=== PATIENT | female | born 1970 | race Caucasian/White ===

== ENCOUNTER 2016-12-17 21:58 | Emergency (ER) | payer OTHER ==
[~2016-12-17] VITALS: Wt 68.2 kg
--- NOTE | 2016-12-17 23:41 | ERA ---
ER Documentation Chief Complaint Date/Time DATE: 12/17/16 TIME: 23:39 Chief Complaint CHEST PAIN SINCE YESTERDAY FEELS LIKE PRESSURE. NO N/V. MILD SOB HPI The patient is a 46-year-old female, presenting to the ER because of sternal chest pressure, 7/10, worse with palpation and movement. She denies similar symptoms previously, denies fever, chills, neck pain, chest pain with exertion or vomiting or diaphoresis. She denies abdominal pain, complain of some nausea but no vomiting, denied dysuria, polyuria, diarrhea, constipation. She does not smoke or drink, currently on her menstrual period Past medical/surgical history: None ROS All systems reviewed and are negative except as per history of present illness. Medications Home Meds Active Scripts Ibuprofen* (Motrin*) 600 Mg Tab, 600 MG PO Q6H Y for PAIN AND OR ELEVATED TEMP, #20 TAB Prov:GUANACO DUMONT MD 12/18/16 Allergies Allergies: Coded Allergies: No Known Allergy (Unverified , 12/17/16) PMhx/Soc Medical and Surgical Hx: pt denies Medical Hx, pt denies Surgical Hx History of Surgery: No Anesthesia Reaction: No Hx Neurological Disorder: No Hx Respiratory Disorders: No Hx Cardiac Disorders: No Hx Psychiatric Problems: No Hx Miscellaneous Medical Probl: No Hx Alcohol Use: Yes (quit drinking in 2012) Hx Substance Use: No Hx Tobacco Use: No Smoking Status: Never smoker Physical Exam Vitals Vital Signs Date Time Temp Pulse Resp B/P Pulse Ox O2 Delivery O2 Flow Rate FiO2 12/18/16 03:30 55 16 118/61 99 Room Air 12/18/16 01:00 55 12 122/54 97 Room Air 12/17/16 22:12 98.8 77 20 137/64 98 Physical Exam Const: No acute distress. Head: Atraumatic. Eyes: Normal Conjunctiva. ENT: Normal External Ears, Nose and Mouth. Neck: Full range of motion. No meningismus. Resp: Clear to auscultation bilaterally. Cardio: Regular rate and rhythm, no murmurs. Abd: Soft, non distended, normal bowel sounds, non tender. Skin: No petechiae or rashes. Back: No midline or flank tenderness. Ext: No cyanosis, or edema. Neur: Awake and alert. No focal deficit Psych: Normal Mood and Affect. Result Diagram: 3/3/17 2220 3/3/17 2220 Results 24 hrs Laboratory Tests Test 12/17/16 22:20 12/17/16 23:56 Alanine Aminotransferase (ALT/SGPT) 35IU/L Albumin 4.2g/dl Albumin/Globulin Ratio 1.23 Alkaline Phosphatase 98IU/L Anion Gap 17 Aspartate Amino Transf (AST/SGOT) 25IU/L Basophils # 0.010^3/ul Basophils % 0.4% Blood Urea Nitrogen 9mg/dl Calcium Level 9.0mg/dl Carbon Dioxide Level 30mmol/L Chloride Level 100mmol/L Creatinine 0.64mg/dl Direct Bilirubin 0.00mg/dl Eosinophils # 0.110^3/ul Eosinophils % 1.4% Globulin 3.40g/dl Glucose Level 106mg/dl Hematocrit 35.7% Hemoglobin 12.1g/dl Indirect Bilirubin 0.0mg/dl Lipase 161U/L Lymphocytes # 2.110^3/ul Lymphocytes % 20.6% Mean Corpuscular Hemoglobin 30.7pg Mean Corpuscular Hemoglobin Concent 33.9g/dl Mean Corpuscular Volume 90.6fl Mean Platelet Volume 8.6fl Monocytes # 0.710^3/ul Monocytes % 7.3% Neutrophils # 7.110^3/ul Neutrophils % 70.1% Nucleated Red Blood Cells # 0.010^3/ul Nucleated Red Blood Cells % 0.0/100WBC Platelet Count 14604^3/UL Potassium Level 3.7mmol/L Red Blood Count 3.9410^6/ul Red Cell Distribution Width 14.0% Sodium Level 143mmol/L Total Bilirubin 0.0mg/dl Total Protein 7.6g/dl Troponin I < 0.012ng/ml White Blood Count 10.110^3/ul Bedside Urine Blood 2+ Bedside Urine Glucose (UA) 0.1% Bedside Urine Ketones (LAB) Negative Bedside Urine Leukocyte Esterase (L Negative Bedside Urine Nitrite (LAB) Negative Bedside Urine Protein (LAB) Negative Bedside Urine pH (LAB) 6.5 Procedures/MDM EKG: Read by emergency physician Rate/Rhythm: Normal Sinus Rhythm 71 beats/min QRS, ST, T-waves: No ST elevation, no T inversion, nonspecific ST and T abnormality Impression: Abnormal EKG [address], [place] [address] Radiology Main Line: [phone] DIAGNOSTIC IMAGING REPORT Patient: CASTILLO BARAJAS : 1970 Age: 46 Sex: F MR #: [id number] DOS: 12/17/16 2344 Ordering MD: GUANACO DUMONT MD Location: E/R Room/Bed: PROCEDURE: XR Chest. CLINICAL INDICATION: Abdominal pain. TECHNIQUE: Single frontal view of the chest was obtained COMPARISON: None FINDINGS: The heart and mediastinum are within normal limits. The lungs are clear. There is no pleural effusion or pneumothorax. IMPRESSION: No acute disease. RPTAT: [facility] Physician Duncan Date Time Electronically viewed and signed by Physician Duncan on 12/18/2016 00:44 RS/ CC: GUANACO DUMONT MD MEDICAL MAKING DECISION: The patient is a 46-year-old female, presenting with epigastric abdominal pain radiating up to the sternal area, most likely musculoskeletal pain. The differential diagnoses considered include but are not limited to acute coronary syndrome, acute myocardial infarction, pericarditis, pulmonary embolism, aortic dissection, pneumonia, pleural effusion , pneumothorax, GERD, chest wall pain. Departure Diagnosis: Primary Impression: Chest pain Condition: Good Comments She was discharged with Motrin I discussed the findings with the patient. I advised the patient to follow-up with the primary physician in about 1-2 days, sooner if needed and return if any concern. The patient's blood pressure was elevated (>120/80) but appears stable without evidence of hypertension emergency or urgency. The patient was counseled about the risks of hypertension and urged to pursue outpatient monitoring and therapy within a week with their primary care physician. GUANACO DUMONT MD Dec 17, 2016 23:41
[2016-12-17 23:52] LABS: ADD SCAN DIFF NO
[2016-12-17 23:54] LABS: URINE BLOOD (Dip) POC 2+ (NEGATIVE)
[2016-12-17 23:57] LABS: BASOPHILS % 0.4 % (0.0-2.0); EOSINOPHILS # 0.1 10^3/ul (0.0-0.5); EOSINOPHILS % 1.4 % (0.0-7.0); HEMATOCRIT 35.7 % (37.0-47.0); HEMOGLOBIN 12.1 g/dl (12.0-16.0); LYMPHOCYTES # 2.1 10^3/ul (0.8-2.9); LYMPHOCYTES % 20.6 % (15.0-51.0); MEAN CORPUSCULAR HEMOGLOBIN 30.7 pg (29.0-33.0); MEAN CORPUSCULAR HGB CONC 33.9 g/dl (32.0-37.0); MEAN CORPUSCULAR VOLUME 90.6 fl (82.0-101.0); MEAN PLATELET VOLUME 8.6 fl (7.4-10.4); MONOCYTE # 0.7 10^3/ul (0.3-0.9); MONOCYTES % 7.3 % (0.0-11.0); NEUTROPHIL # 7.1 10^3/ul (1.6-7.5); NEUTROPHILS % 70.1 % (39.0-77.0); PLATELET COUNT 421 10^3/UL (140-415); RED BLOOD COUNT 3.94 10^6/ul (4.20-5.40); WHITE BLOOD COUNT 10.1 10^3/ul (4.8-10.8)
[2016-12-18 00:07] LABS: ALBUMIN 4.2 g/dl (3.3-4.9)
[2016-12-18 00:08] LABS: POTASSIUM 3.7 mmol/L (3.5-5.1)
[2016-12-18 00:10] LABS: ALBUMIN/GLOBULIN RATIO 1.23; CREATININE 0.64 mg/dl (0.44-1.00); TOTAL PROTEIN 7.6 g/dl (6.1-8.1)
--- NOTE | 2016-12-18 00:45 | RADRPT ---
PROCEDURE: XR Chest. CLINICAL INDICATION: Abdominal pain. TECHNIQUE: Single frontal view of the chest was obtained COMPARISON: None FINDINGS: The heart and mediastinum are within normal limits. The lungs are clear. There is no pleural effusion or pneumothorax. IMPRESSION: No acute disease. RPTAT: [facility] Physician Duncan Date Time Electronically viewed and signed by Héctor Mckeon Physician on 12/18/2016 00:44 RS/
[2016-12-18] MEDS ORDERED: IBUP-1542 PO (03:44)
[2016-12-18 04:06] VITALS: BP 114/52; PULSE 82; RESP 17; TEMP 97.5
== END 2016-12-18 04:09 | disposition home or self-care (01) ==
LOC: EDBD → E/R 21:58 → MERGE 21:58 → E/R 12-18 04:09
DX: R07.2 Precordial pain (principal)
CPT/HCPCS: 36415; 71010; 80053; 81003; 83690; 84484; 85025; Z7502; 93005